=== PATIENT | female | born 1995 | race African-American/Black ===

== ENCOUNTER 2018-08-25 15:56 | Emergency (ER) | payer SELFPAY ==
[2018-08-25 16:05] VITALS: BP 118/71; PULSE 87; TEMP 99.1; BMI 22.0
[2018-08-25] MEDS ORDERED: IBUPROFEN 400 MG TABLET (FP) PO ONE ×2 (17:19→17:34)
[2018-08-25] MEDS ORDERED: SULFAMETHOXAZOLE/TRIMETHOPRIM 800MG/160MG D.S. TABLET PO ONE (17:19)
--- NOTE | 2018-08-25 17:26 | PDOC ---
History of Present Illness - General Chief Complaint: Edema Stated Complaint: RT INDEX FINGER SWOLLEN Time Seen by Provider: 08/25/18 16:51 History Source: Patient Exam Limitations: No Limitations - History of Present Illness Initial Comments: 08/25/18 17:23 Patient came for evaluation of swollen right index finger. Denies trauma, denies nailbiting, however states suffers from eczema and has frequent fissures and exacerbations inside her interdigital folds. States swelling started approximately 2 days ago is progressively worsened to her index finger. 08/25/18 17:50 Timing/Duration: 1 week Severity: mild Past History - Travel Traveled outside of the country in the last 30 days: No Close contact w/someone who was outside of country & ill: No - Past Medical History Allergies/Adverse Reactions: Allergies Allergy/AdvReac Type Severity Reaction Status Date / Time No Known Allergies Allergy Verified 08/25/18 16:05 Home Medications: Ambulatory Orders Clindamycin [Cleocin -] 300 mg PO TID #21 capsule 08/25/18 COPD: No - Suicide/Smoking/Psychosocial Hx Smoking Status: No Smoking History: Never smoked Number of Cigarettes Smoked Daily: 0 Information on smoking cessation initiated: No Hx Alcohol Use: No Drug/Substance Use Hx: No Review of Systems - Review of Systems Able to Perform ROS?: Yes Is the patient limited Bh[place]anese proficient: Yes Constitutional: Yes: Symptoms Reported, See HPI, Malaise Respiratory: No: Symptoms reported Musculoskeletal: Yes: Symptoms Reported, See HPI, Joint Pain, Joint Swelling Integumentary: Yes: Symptoms Reported, See HPI, Dryness, Erythema, Other All Other Systems: Reviewed and Negative *Physical Exam - Vital Signs Last Vital Signs Temp Pulse Resp BP Pulse Ox 99.1 F 87 18 118/71 100 08/25/18 16:03 08/25/18 16:03 08/25/18 16:03 08/25/18 16:03 08/25/18 16:03 - Physical Exam General Appearance: Yes: Nourished, Appropriately Dressed, Apparent Distress, Mild Distress HEENT: positive: CARLA, Normal ENT Inspection, TMs Normal, Pharynx Normal Neck: positive: Supple. negative: Tender Respiratory/Chest: positive: Lungs Clear Extremity: positive: Normal Capillary Refill, Tender, Swelling (patient has swelling circumferentially to right index finger primarily in the proximal phalanx. Has some excoriated skin on fingers and ulnar aspect where patient reports eczema exacerbation. There is no true vesicles, no weeping lesions, no obvious fissures. Patient also has no streaking, mild PIP and MCP knuckle tenderness. No other fingers affected). negative: Normal Inspection, Normal Range of Motion Integumentary: positive: Warm, Erythema, Swelling Neurologic: positive: business analytics specialist II-XII NML intact, Fully Oriented, Alert, Normal Response Moderate Sedation - Procedure Monitoring Vital Signs: Procedure Monitoring Vital Signs Temperature 99.1 F 08/25/18 16:03 Pulse Rate 87 08/25/18 16:03 Respiratory Rate 18 08/25/18 16:03 Blood Pressure 118/71 08/25/18 16:03 O2 Sat by Pulse Oximetry (%) 100 08/25/18 16:03 Medical Decision Making - Medical Decision Making 08/25/18 17:44 X-ray negative for fractures, dislocations, or foreign body noted in area of swelling. The myosin cover MRSA potential, elevate hand and have follow-up with Dr. Zhang or hand specialist for reevaluation. Patient understands to return immediately to emergency swelling, pain, streaking or fevers. *DC/Admit/Observation/Transfer Diagnosis at time of Disposition: Cellulitis of finger Qualifiers: Laterality: right Qualified Code(s): L03.011 - Cellulitis of right finger - Discharge Dispostion Disposition: HOME Condition at time of disposition: Stable Decision to Admit order: No - Referrals Referrals: Rex Zhang MD [Staff Physician] - - Patient Instructions Printed Discharge Instructions: DI for Cellulitis -- Adult Additional Instructions: Rest, keep hand elevated Avoid heavy lifting or strenuous activity until healed Soak finger every 2-3 hours while awake for the next 2-3 days to keep continue to allow drainage Reapply bacitracin ointment and bulky dressing after each soaking May use ibuprofen or Tylenol for pain relief Followup with private physician in one to 2 days for wound check as needed Return immediately to emergency department or private doctor's for worsening redness, swelling, pain, streaking Take all of antibiotics until completed - Post Discharge Activity Forms/Work/School Notes: Back to Work
[2018-08-25] MEDS ORDERED: SULFAMETHOXAZOLE/TRIMETHOPRIM 800MG/160MG D.S. TABLET ONE (17:34)
== END 2018-08-25 17:56 | disposition home or self-care (01) ==
LOC: JERFT 15:56
DX: L03.011 Cellulitis of right finger (principal)
CPT/HCPCS: 73140-TC-RT-FY; 99281-25